=== PATIENT | male | born 1985 | race Caucasian/White ===

== ENCOUNTER 2022-04-02 17:34 | Emergency (ER) | payer SELFPAY ==
[2022-04-02 17:35] VITALS: BP 128/89; PULSE 87; RESP 15; TEMP 36.6; O2SAT 98; BMI 19.8
[2022-04-02 18:01] VITALS: RESP 16
--- NOTE | 2022-04-02 18:21 | EX.ED.VIS.EY ---
HPI History of Present Illness Chief Complaint: Foreign Body Detail of Chief Complaint: Foreign body sensation to right eye Informant: patient Narrative Narrative: Patient presents to the emergency department with complaint of foreign body sensation to the right eye. Patient states that he was working under a car using a cordless impact on a bolt and immediately felt something go in his right eye. Patient was wearing safety glasses but he states that they are not very well fitting. Patient put some erythromycin ointment in his eye and not having much discomfort currently. He denies any photophobia. He denies significant vision changes. Prior similar symptoms: Yes PFSH [facility] Medical History (Updated 04/02/22 @ 18:[address] Patrick Carlton, DO) No acute medical problems Home Medications No Known/Unobtainable [No Known Home Medications] 01/06/16 [History Last Taken Unknown] Allergy/AdvReac Type Severity Reaction Status Date / Time No Known Allergies Allergy Verified 04/02/22 18:01 Social History Smoking Status: Never smoker ROS ROS ED Review of Systems ROS Unobtainable: other Constitutional Constitutional ED: Reports lethargy; Denies chills, fever(s), sweats or weight loss Eyes Eyes: Reports other Details: Foreign body sensation right eye ; Denies blurry vision, change in vision or diplopia ENT ENT ED: Denies rhinorrhea or sore throat Cardiovascular Cardiovascular: Reports chest pain and racing heartbeat; Denies orthopnea Respiratory/Chest Respiratory/Chest: Reports dyspnea and dyspnea on exertion; Denies cough, orthopnea or sputum Gastrointestinal Gastrointestinal: Denies abdominal pain, diarrhea, nausea or vomiting Genitourinary Genitourinary ED: Denies dysuria, hematuria or urinary frequency Musculoskeletal Musculoskeletal: Denies arthralgias, back pain, myalgias or neck pain Integumentary Denies abscess, Abrasions or rash Neurologic Neurologic: Denies headache(s) or weakness Psychiatric Psychiatric: Denies anxiety, depression or suicidal thoughts Endocrine Endocrinology: Denies polydipsia, polyphagia or polyuria Hematologic/Lymphatic Hematologic/Lymphatic: Denies easy bleeding, easy bruising or lymphadenopathy Allergic/Immunologic Allergic/Immunologic ED: Denies mouth swelling, tongue swelling or urticaria EXAM Physical Exam Const Vital Signs: 04/02/22 17:35 04/02/22 17:59 04/02/22 18:01 Temperature 97.8 F Temperature Source Temporal Pulse Rate 87 Respiratory Rate 15 16 Respiratory Effort Normal Non-Labored Respiratory Pattern Normal Blood Pressure 128/89 H Blood Pressure Mean 102 Pulse Ox 98 Oxygen Delivery Method Room Air Positive well nourished and well developed General Appearance ED: well developed and NAD HEENT Reports TM's clear, moist mucous membranes and other normocephalic, atraumatic and other Other Details: Right upper and lower eyelids everted and no foreign bodies noted. Eye was stained with fluorescein and no corneal abrasions noted or foreign bodies noted. Eye was evaluated with a slit lamp and I do not appreciate any foreign bodies in the cornea or abrasions. ; Negative for trauma or tenderness Tympanic Membrane ED: Yes TM's clear Eyes PERRL and EOMs intact bilaterally General Eye ED: Negative for pale conjunctiva or scleral icterus Neck no lymphadenopathy, supple and no JVD General: Negative for tenderness Chest Wall inspection of chest normal and palpation of chest normal Chest: Negative for tenderness Resp normal respiratory effort and clear to auscultation bilaterally Effort and Inspection: Negative for respiratory distress or pain with movement Auscultation: Negative for rhonchi, wheezes or diminished lung sounds Cardio regular rate, regular rhythm, S1 normal heart sound, S2 normal heart sound and no murmurs Peripheral Pulses: pulses 2+ throughout GI normal to inspection, nondistended, normoactive bowel sounds, soft to palpation, non-tender, non-distended and no masses Back/Spine no CVA tenderness and no thoracic nor lumbar tenderness Extremity normal to inspection General Extremety ED: Negative for edema General Extremity: Negative for edema Neuro oriented x3, CN's II-XII intact bilaterally, no sensory deficits noted and gait normal Sensorium / Orientation: awake, alert, oriented to person, oriented to place and oriented to time Motor Exam: strength 5/5 throughout and strength abnormal Psych mental status grossly normal Skin no rashes or lesions noted and no wounds MDM MDM MDM Narrative Medical decision making narrative: I do not appreciate any foreign bodies within the cornea or underneath the lids. Patient will be given an gentamicin ophthalmic ointment. I will discussed with ophthalmology for close follow-up. Discharged home in stable condition. Discharge Plan Triage Chief Complaint: Foreign Body ED Provider: Patrick Carlton Dx/Rx/DC Orders Clinical Impression: Acute pain in right eye Instructions: ED Conjunctival Foreign Body, Resolved, ED Pain, Acute, Uncertain Cause Prescriptions: No Action No Known Home Medications Primary Care Provider: Care Physician,No Primary Referrals: Arnold Bray MD [Med Staff - Active Staff] - 1 Day for another exam Care Physician,No Primary [Primary Care Provider] - Disposition Disposition: Home, Self Care
[2022-04-02] MEDS: Tetracaine 0.5% Ophthalmic Bottle 1 DRP RIGHT EYE (18:32)
[2022-04-02] MEDS: Gentamicin Sulfate 1 OPTH.BTL 2 DRP RIGHT EYE (18:55)
== END 2022-04-02 19:02 | disposition home or self-care (01) ==
LOC: ED 18:45
PROVIDERS: Emergency Provider Emergency Medicine; Visit Provider Emergency Medicine
DX: H57.11 Ocular pain, right eye (principal)
CPT/HCPCS: 99283